=== PATIENT | female | born 1990 | race Native Hawaiian/Other Pacific Islander ===

== ENCOUNTER 2022-02-02 01:41 | Emergency (ER) | payer OTHER ==
[~2022-02-02] VITALS: Ht 188 cm; Wt 117.9 kg
[2022-02-02 01:41] VITALS: BP 138/88
[2022-02-02] MEDS ORDERED: CEPH-509 PO (05:01)
== END 2022-02-02 05:04 | disposition home or self-care (01) ==
LOC: ER 01:41
DX: T24.412A Corrosion of unspecified degree of left thigh, initial encounter (principal); T79.8XXA Other early complications of trauma, initial encounter; Y93.89 Activity, other specified; Y92.89 Other specified places as the place of occurrence of the external cause; Y99.8 Other external cause status